=== PATIENT | female | born 1935 | race Caucasian/White ===

== ENCOUNTER 2017-06-11 11:02 | Inpatient (IN) | payer MEDICARE ==
[~2017-06-11] VITALS: Ht 154.9 cm; Wt 49.7 kg
[2017-06-11 12:50] VITALS: BP 131/60
[2017-06-11 12:53] VITALS: BP 127/59
[2017-06-11 12:56] VITALS: BP 117/51
[2017-06-11] MEDS ORDERED: ONDANSETRON 4MG/2ML VIAL (J2405) IV PRN (13:00)
[2017-06-11] MEDS ORDERED: ASPI1TAB PO (13:21)
[2017-06-11] MEDS ORDERED: CALC600T31 PO (13:21)
[2017-06-11] MEDS ORDERED: FISH5CAP PO (13:21)
[2017-06-11] MEDS ORDERED: SING10TA32 PO (13:21)
[2017-06-11] MEDS ORDERED: SALI0.6523 (13:21)
[2017-06-11] MEDS ORDERED: METO50TA7 PO (13:21)
[2017-06-11] MEDS ORDERED: FIBE625T27 PO (13:21)
[2017-06-11] MEDS ORDERED: REFR0.5D8 OU (13:21)
[2017-06-11] MEDS ORDERED: ANAC400T PO (13:28)
[2017-06-11] MEDS ORDERED: ACET1TAB17 PO (13:28)
[2017-06-11 13:38] LABS: MEAN CORPUSCULAR HEMOGLOBIN 29.4 pg (27.0-33.0); MEAN CORPUSCULAR HGB CONC 31.7 g/dl (32.0-36.5); MEAN CORPUSCULAR VOLUME 92.8 fl (80.0-96.0); RED CELL DISTRIBUTION WIDTH 13.9 % (11.5-14.5); WHITE BLOOD COUNT 13.8 K/mm3 (4.0-10.0)
[2017-06-11 14:00] LABS: ALBUMIN 3.2 GM/DL (3.2-5.2); ALBUMIN/GLOBULIN RATIO 1.03 (1.00-1.93); ALKALINE PHOSPHATASE 37 U/L (45-117); ALT/SGPT 12 U/L (12-78); ANION GAP 8 MEQ/L (8-16); AST/SGOT 11 U/L (15-37); BILIRUBIN,TOTAL 0.2 MG/DL (0.2-1.0); BLOOD UREA NITROGEN 46 MG/DL (7-18); CALCIUM LEVEL 8.3 MG/DL (8.8-10.2); CARBON DIOXIDE LEVEL 28 MEQ/L (21-32); CHLORIDE LEVEL 110 MEQ/L (98-107); CREATININE FOR GFR 0.56 MG/DL (0.55-1.02); GLOMERULAR FILTRATION RATE > 60.0 (>39); GLUCOSE, FASTING 94 MG/DL (83-110); POTASSIUM SERUM 4.3 MEQ/L (3.5-5.1); SODIUM LEVEL 146 MEQ/L (136-145); TOTAL PROTEIN 6.3 GM/DL (6.4-8.2)
[2017-06-11] MEDS ORDERED: SODIUM CHLORIDE NASAL 0.65% SPRAY BTL (OCEAN) PRN (14:45)
[2017-06-11] MEDS: PANTOPRAZOLE SODIUM 40 MG in D5W MINI-BAG PLUS 50 ML IV SCH ×3 (14:58→22:56)
[2017-06-11] MEDS: D5W/0.9% SODIUM CHLORIDE 1,000 ML IV SCH ×2 (14:58→23:36)
--- NOTE | 2017-06-11 15:06 | HPEPDOC ---
General Date of Admission Jun 11, 2017 at 12:41 Attending Physician: FLAKITA MURILLO MD Chief Complaint The patient is a 81-year-old female admitted with a reason for visit of Gi Bleed. Source: Patient History of Present Illness PRIMARY CARE PROVIDER: Landy Shook PROPERTY CUSTODIAN from [facility] in [facility] CHIEF COMPLAINT: black tarry-like stool HISTORY OF PRESENT ILLNESS: Ms. Rey is a 81 yo F with a past medical history of diverticulosis, diverticulitis status post 2 colostomies, colostomy with rectovaginal fistula, left breast cancer status post lumpectomy and radiation/chemotherapy around 8 years ago, essential hypertension, hypercholesterolemia, and gastroesophageal reflux disease, who presents to [facility] today as a transfer from [facility] for a GI consult for a possible GI bleed. Patient states that she started to have black tarry bowel movements in her colostomy bag that began at ~5 PM last night. She had no pain before this started. States she was up all night emptying her colostomy bag which was constantly draining with black tarry stool. This did not let up until around 9 AM this morning which was the last time that she emptied her bag. She went to [facility] this AM to have this checked out. She also states that she had to lie down in the bathroom floor for a half an hour because she became dizzy. She denied fevers, chills, chest pain, shortness of breath, abdominal pain, vomiting, constipation, urinary complaints She denies edema or rashes anywhere. She admits that she did feel nauseous earlier and felt sick to her stomach this morning, but she did not vomit. She denies any sick contacts except for her neighbors who got shingles. She denies any recent travel anywhere. She admits that she has frequent urinary tract infections due to having a rectovaginal fistula. She admits, now, that she feels tired. Patient has not had any episodes of dark tarry bowel movements ever before she states. This is the first time, and was an abrupt onset. In [facility] documentation, patient stated she had chills, nausea, and dizziness that began at 1700 yesterday. According to patient and daughter, patient has had significant stress lately as her has recently been admitted to the [facility] for rapidly advancing dementia. She has also admitted to taking Anacin for the past 3 days. In [facility], they had administered protonix IV 40 mg, given 4 mg zofran, gave 1 gm of rocephin. Patient was then placed on protonix IV 4 mg per hour drip. PAST MEDICAL HISTORY: Diverticulosis Diverticulitis with perforation status post 2 colostomies; colostomy now with rectovaginal fistula (as per patient) Left breast cancer status post lumpectomy and radiation/chemotherapy around 8 years ago Essential hypertension Hypercholesterolemia Gastroesophageal reflux disease Seasonal Allergic Rhinitis Sleep Related Leg Cramps Hx of Hyperkalemia, diminished renal excretion (as per progress note obtained from [facility] in [facility] from PCP office on 05/16/17)--seems to be due to excess banana intake PAST SURGICAL HISTORY: 2 colostomies, 1 with reversal, now with rectovaginal fistula Tonsillectomy Bladder Suspension ~20 years ago Hysterectomy L Lumpectomy 2009 Chronic UTIs--sees Urology MEDICATIONS: Please see below. ALLERGIES: Nuts: edema, swelling, hives Codeine sulfate: nausea Phenergen: angioedema, swelling SOCIAL HISTORY: Denies tobacco use Denies EtOH use Denies illicit drug use Her is a resident of [facility] FAMILY HISTORY: Father: , HTN, hyperlipidemia cancer Mother: at age 92 with stomach cancer; had HTN, hyperlipidemia Sister & Brother: with either parathyroid or thyroid disorders Brother: had parathyroidectomy CODE STATUS: FULL CODE REVIEW OF SYSTEMS: All ROS were negative except for those as stated above in HPI. PHYSICAL EXAMINATION: Please see VS and physical examination below. LABORATORY DATA: From [facility] on 06/11/17: Labs were significant for: CBC with white blood cell count 17.3, hemoglobin 9.4 , hematocrit 30.1, red blood cell count 3.20, MCV 94.1, platelet count 392, mean corpuscular hemoglobin 29.4, name corpuscular hemoglobin concentration 31.2 , red cell distribution width 14.2, mean platelet volume of 9.8, granulocyte percent is 82.3, lymphocyte percent 10.9, monocyte percent 6.2, eosinophil percent 0.3, basophil percent 0.3, granulocyte #14.2, lymphocyte #1.9, monocyte #1.1, eosinophil #0.1, basophil #0.1, neutrophils 88, lymphocytes 9, monocytes 3, anisocytosis 1+, platelet estimate normal. PT was 9.9 and INR was 1.03. Partial thromboplastin time was 21.9. --It was reported in [facility] Documentation that patient had Hgb of 12 to 9 drop in one month. FOBT: (+) CMP from [facility]: Was significant for BUN of 56, a creatinine of 0.7. Glucose was 104, sodium 140, potassium 4.1, chloride 103, bicarbonate was 29, calcium 9.2, anion gap 8, GFR 81, AST 12, ALT 19, alk phosphatase 46, total bilirubin 0.2, total protein 6.9, albumin 2.3. Blood type ABO from [facility]: A, Rh type: negative, antibody screen: Negative Urinalysis from [facility] today: Pale clear in color and appearance, specific gravity of 1.010, 2+ leukocyte esterase, positive nitrate, small ketone , trace blood, 5-10 white blood cells per high power field, 1+ epithelial cells , 1+ bacteria Urine cultures: Pending [facility] Labs done on 06/11/17 at 13:25: CBC was remarkable for white blood cell count 13.8, hemoglobin 8.7, hematocrit 27.3, MCHC 31.7, platelets 348. CMP: was significant for sodium 146, chloride 110, BUN 46, creatinine 0.56, GFR greater than 60, fasting glucose 94, calcium 8.3, total protein 6.3, albumin 2.2. PT was 13.3 and INR was 1 Urinalysis: was significant for a straw-colored appearance, 2+ blood, 3+ leukocyte esterase, 38 white blood cells, 4 red blood cells, and 1+ bacteria. Type and screen: A(-) and antibody screen negative. MICROBIOLOGY: Blood cx pending x 2 Urine Cx pending ASSESSMENT/PLAN: This is a 81-year-old female who is presenting from [facility] as a transfer to [facility] for gastroenterology consult for possible GI bleed. She has been suffering from dark tarry bowel movements since 5 PM last night. She will be admitted to the PCU unit for close monitoring and for evaluation of symptomatic anemia. She likely has blood loss anemia. Also is found to have leukocytosis and possible UTI. Symptomatic Anemia: Patient is hemodynamically stable at this time. However, her counts seem to be dropping. Her H&H was 9.4 & 30.1 taken this AM at [facility]. Is now 8.7 & 27.3 at [facility] ED at 13:25. She likely has an upper GI bleed. We will be starting a protonix drip, gentle IV hydration, have obtained consent for possible blood transfusion, have consulted Dr. Chaves of GI, will monitor H&H q6h and then q24 hours. Dr. Chaves states he will decide whether to proceed with EGD after he sees the patient. We will monitor VS, check daily CBCs and BMPs. Will make patient NPO for possible EGD procedure. Will hold all PO medications at this point in time. Will restart if bleeding stops. Will monitor strict I's/O's. Leukocytosis: At [facility], was found to have WBC of 17.3 and at [facility] WBC is down to 13.8. Possible Acute UTI/Cystitis with hematuria: Patient has hx of recurrent UTIs. States this is due to her rectovaginal fistula. Patient may have a UTI and urine cx are pending, however, she denies any urinary complaints. She was given 1 gm of rocephin IV at [facility] already. Will possibly start antibiotics if patient becomes symptomatic. Will hold off at this point in time. Chronic Medical Problem List: Diverticulosis Diverticulitis with perforation status post 2 colostomies; colostomy now with rectovaginal fistula (as per patient) Left breast cancer status post lumpectomy and radiation/chemotherapy around 8 years ago Essential hypertension Hypercholesterolemia Gastroesophageal reflux disease Seasonal Allergic Rhinitis Sleep Related Leg Cramps Hx of Hyperkalemia, diminished renal excretion (as per progress note obtained from [facility] in [facility] from PCP office on 05/16/17)--seems to be due to excess banana intake Resume home medications and diet when anemia has resolved for the above listed medical problems. DVT ppx: TEDs and SCDs, no pharmacologic DVT ppx at this time due to likely GI bleed. FULL CODE STATUS Immunizations as per protocol My preceptor for this patient encounter was Dr. Flakita Murillo, and was physically present in the building during the encounter and was fully available. As needed , all aspects of the patient interview, examination, medical decision making process, and medical care plan development were reviewed and approved by the preceptor. Preceptor is aware and concurs with the plan as stated in the body of this note and will attest to such by his/her cosignature. Home Medications Scheduled (Fish Oil 1200 mg) 1 Cap Cap, 1 CAP PO BID, (Reported) Aspirin (Aspirin 81) 81 Mg Tab, 81 MG PO QPM, (Reported) Calcium (Calcium) 600 Mg Tab, 600 MG PO BID, (Reported) Calcium Polycarbophil (Fiber Tabs) 625 Mg Tab, 625 MG PO DAILY, (Reported) Metoprolol Tartrate (Metoprolol Tartrate) 50 Mg Tab, 50 MG PO BID, (Reported) Montelukast Sodium (Singulair) 10 Mg Tab, 10 MG PO QPM, (Reported) Scheduled PRN (Saline Nasal [place]) 0.65 % Spr, 1 SPRAY NA for NASAL DRYNESS, (Reported) (Anacin 400-32 mg) 1 Tab Tab, 1 TAB PO QHS PRN for PAIN, (Reported) Acetaminophen (Acetaminophen) 325 Mg Tab, 650 MG PO Q4H PRN for PAIN, (Reported) Carboxymethylcellulose Sodium (Refresh Tears) 0.5 % Ayan, 1 DROP OU Q2H PRN for DRY EYES, (Reported) Allergies Coded Allergies: NUTS (Unverified Allergy, Severe, SWELLING, 06/11/17) Promethazine (Unverified Allergy, Severe, THROAT CLOSES, 06/11/17) Codeine (Unverified Adverse Reaction, Mild, N/V, 06/11/17) Physical Examination General Exam: Positive: Alert, Cooperative, No Acute Distress Eye Exam: Positive: Conjunctiva & lids normal, Negative: Sclera icteric ENT Exam: Positive: Atraumatic, Other ENT (a little hard of hearing) Neck Exam: Positive: Supple, Negative: JVD, thyromegaly Chest Exam: Positive: Clear to auscultation, Normal air movement, Negative: Rales, Rhonchi, Wheezing Heart Exam: Positive: Rate Normal, Regular Rhythm, Normal S1, Normal S2, Negative: Murmurs Abdomen Exam: Positive: Normal bowel sounds, Soft, Other (+colostomy bag on anterior abdomen appreciated with some stool ), Negative: Tenderness, Hepatospenomegaly Extremity Exam: Positive: Normal pulses (+2 dorsalis pedis and radial bilaterally), Negative: Clubbing, Cyanosis, Edema Skin Exam: Positive: Nl turgor and temperature, Negative: Rash, Breakdown Neuro Exam: Positive: Normal Speech Psych Exam: Positive: Mental status NL, Mood NL, Memory Intact, Oriented x 3 Vital Signs Vital Signs Date Time Temp Pulse Resp B/P (MAP) Pulse Ox O2 Delivery O2 Flow Rate FiO2 06/11/17 12:56 95 117/51 (73) 06/11/17 12:50 98.6 20 98 Room Air Laboratory Data Labs 24H Laboratory Tests 2 06/11/17 13:04: Urine Appearance CLEAR, Urine Color STRAW, Urine pH 5.0, Urine Specific [place] 1.011, Urine Protein NEGATIVE, Urine Glucose (UA) NEGATIVE, Urine Ketones NEGATIVE, Urine Urobilinogen 0.2, Urine Bilirubin NEGATIVE, Urine Leukocyte Esterase 3+H, Urine Blood 2+H, Urine Nitrite NEGATIVE, Urine WBC (Auto) 38H, Urine RBC (Auto) 4H, Urine Hyaline Casts (Auto) 0, Urine Bacteria (Auto) 1+H, Urine Squamous Epithelial Cells 0, Urine Sperm (Auto) 06/11/17 13:25: Prothrombin Time 13.3, Prothromb Time International Ratio 1.00, Anion Gap 8, Glomerular Filtration Rate > 60.0, Blood Urea Nitrogen 46H, Creatinine 0.56, Sodium Level 146H, Potassium Level 4.3, Chloride Level 110H, Carbon Dioxide Level 28, Calcium Level 8.3L, Aspartate Amino Transf (AST/SGOT) 11L, Alanine Aminotransferase (ALT/SGPT) 12, Alkaline Phosphatase 37L, Total Bilirubin 0.2, Total Protein 6.3L, Albumin 3.2, Albumin/Globulin Ratio 1.03 CBC/BMP Laboratory Tests 06/11/17 13:25 Red Blood Count 2.95 L, Mean Corpuscular Volume 92.8, Mean Corpuscular Hemoglobin 29.4, Mean Corpuscular Hemoglobin Concent 31.7 L, Red Cell Distribution Width 13.9, Calcium Level 8.3 L, Aspartate Amino Transf (AST/SGOT) 11 L, Alanine Aminotransferase (ALT/SGPT) 12, Alkaline Phosphatase 37 L, Total Bilirubin 0.2, Total Protein 6.3 L, Albumin 3.2 Microbiology Microbiology 06/11/17 Blood Culture, Received Pending 06/11/17 Blood Culture, Received Pending 06/11/17 Urine Culture, Received Pending Plan / VTE VTE Prophylaxis Ordered?: Yes (TEDs and SCDs, no pharmacologic ppx due to possible GI bleed) VIJAY FRANCIS OGME-1 Jun 11, 2017 15:06
[2017-06-11 16:00] VITALS: BP 126/60
[2017-06-11 20:00] VITALS: BP 113/54
[2017-06-12] VITALS (17 sets, daily range): BP systolic 107–139; BP diastolic 46–67
--- NOTE | 2017-06-12 00:27 | CR.PDOC ---
[facility] Consultation Consultation DATE OF CONSULTATION: 06/11/2017 14:00. REFERRING PROVIDER: Dr. Flaktia Murillo. ATTENDING PHYSICIAN: Dr. Flakita Murillo REASON FOR CONSULTATION/CHIEF COMPLAINT: Dark stools in colostomy bag. 81 year old woman with HTN, diverticulosis, diverticulitis status post colostomy twice, ( one complicated with rectovaginal fistula and patient was told that the colostomy is permanent and cannot be reversed, since 9 yrs, last colonoscopy 2 months ago), HLD, was admitted from [facility] ( for possible GI bleeding). GI was consulted for the same. Patient reports she noted her colostomy bag filled with dark stools since 5 PM last night, when she also noted having dizziness and feeling weak. She says she was taking high dose aspirin for pain for 3 days. Also reports some nausea but denies any other GI symtptoms. No further dark stools today. Pertinent negative symptoms. Denies abdominal pain, fever, chills, sick contacts, antibiotics use, vomiting, loss of appetite, unintentional weight loss, no hematemsis. PAST MEDICAL HISTORY: As above. PAST SURGICAL HISTORY: As above. h/o hysterectomy. MEDICATIONS: reviewed. No Plavix or anticoagulants. ALLERGIES: reviewed. see below. SOCIAL HISTORY: Denies smoking, alcohol or drugs. FAMILY HISTORY: Non contributory. Prior endoscopies: EGD - many years ago > 10 yrs. patient does not remember the details. Colonoscopy - 2 months ago- from both colostomy and anus. - normal as per patient. Review of systems: GI: as above. General: no fever, chills. Respiratory system: NO SOB, no cough or chest pain. CVS: no chest pain. Musculoskeletal: has multiple arthralgias. SKin: no new rash. DUMPER OPERATOR: Denies any focal weakness. Physcial examination: VItals - noted - normal BP, pulse. HEENT: mild pallor, no icterus. CHEST: bilaretal clear breath sounds. CVS: s1, s 2 heard , no murmur. No pedal edema. GI: soft, right sided colostomy bag and also noted left sided healed colostomy. Non tender, normal bowel sounds. Extremities: no pedal edema. DUMPER OPERATOR: Alert awake and oriented x 3. no focal deficits. Labs: reviewed.. Two serial Hb.HCT - stable in [facility]. Assessment: -- Darks stools from colostomy with normal colonoscopy around 2 months back - now no further dark stools -- DDx- PUD vs Gastric mass vs AVM. Less likely diverticular bleeding or lower GI bleeding. NO overt active bleeding at this time. -- Anemia with drop in Hb/HCT from baseline from previous baseline- likely from GI bleeding. Recommendations: -- Clear liquid diet for now. -- IV PPI - prefer pantoprazole drip for 48 hours then switch to PO PPI daily for 8 weeks ( to be taken bread panner on empty stomach). -- Monitor CBC -- Transfuse if needed one PRBC to keep hemoglobin around 9. ( due to age and risk of coronary disease. -- Avoid NSAIDs. -- Patient is educated about the need for EGD urgently. Patient is explained about the procedure, its indications, risks ( including but not limited to - infection, bleeding with need for transfusion, perforation, need for urgent surgery, anesthesia complications including cardiac arrest) and alternatives inclduing no procedure. -- patient verbalized understanding and agreed for the procedure to be done on Tuesday. -- Keep NPO after mid night on tuesday. Plan of care reviewed and discussed with Patient and she verbalized understanding. Recommendations communicated to primary team. Allergies Coded Allergies: NUTS (Unverified Allergy, Severe, SWELLING, 06/11/17) Promethazine (Unverified Allergy, Severe, THROAT CLOSES, 06/11/17) Codeine (Unverified Adverse Reaction, Mild, N/V, 06/11/17) Home Medications Scheduled (Fish Oil 1200 mg) 1 Cap Cap, 1 CAP PO BID, (Reported) Aspirin (Aspirin 81) 81 Mg Tab, 81 MG PO QPM, (Reported) Calcium (Calcium) 600 Mg Tab, 600 MG PO BID, (Reported) Calcium Polycarbophil (Fiber Tabs) 625 Mg Tab, 625 MG PO DAILY, (Reported) Metoprolol Tartrate (Metoprolol Tartrate) 50 Mg Tab, 50 MG PO BID, (Reported) Montelukast Sodium (Singulair) 10 Mg Tab, 10 MG PO QPM, (Reported) Scheduled PRN (Saline Nasal [place]) 0.65 % Spr, 1 SPRAY NA for NASAL DRYNESS, (Reported) (Anacin 400-32 mg) 1 Tab Tab, 1 TAB PO QHS PRN for PAIN, (Reported) Acetaminophen (Acetaminophen) 325 Mg Tab, 650 MG PO Q4H PRN for PAIN, (Reported) Carboxymethylcellulose Sodium (Refresh Tears) 0.5 % Ayan, 1 DROP OU Q2H PRN for DRY EYES, (Reported) BIRDIE SETHI MD Jun 12, 2017 00:27
[2017-06-12] MEDS: PANTOPRAZOLE SODIUM 40 MG in D5W MINI-BAG PLUS 50 ML IV SCH ×5 (03:58→23:30)
[2017-06-12 05:20] LABS: MEAN CORPUSCULAR HEMOGLOBIN 30.5 pg (27.0-33.0); MEAN CORPUSCULAR HGB CONC 32.3 g/dl (32.0-36.5); MEAN CORPUSCULAR VOLUME 94.5 fl (80.0-96.0); RED CELL DISTRIBUTION WIDTH 14.1 % (11.5-14.5); WHITE BLOOD COUNT 8.8 K/mm3 (4.0-10.0)
[2017-06-12 05:41] LABS: ANION GAP 8 MEQ/L (8-16); BLOOD UREA NITROGEN 24 MG/DL (7-18); CALCIUM LEVEL 7.8 MG/DL (8.8-10.2); CARBON DIOXIDE LEVEL 26 MEQ/L (21-32); CHLORIDE LEVEL 116 MEQ/L (98-107); CREATININE FOR GFR 0.57 MG/DL (0.55-1.02); GLOMERULAR FILTRATION RATE > 60.0 (>39); GLUCOSE, FASTING 128 MG/DL (83-110); POTASSIUM SERUM 4.2 MEQ/L (3.5-5.1); SODIUM LEVEL 150 MEQ/L (136-145)
[2017-06-12] MEDS ORDERED: CALCIUM GLUCONATE 1,000 MG in D5W MINI-BAG PLUS 100 ML IV ONE (07:45)
[2017-06-12] MEDS: D5W 1,000 ML IV SCH ×2 (08:59→22:34)
[2017-06-12] MEDS: ACETAMINOPHEN TAB 650MG DOSE (2X325MG) PO PRN ×2 (09:48→22:33)
--- NOTE | 2017-06-12 11:28 | IPNPDOC ---
Text Note Date of Service The patient was seen on 06/12/17. NOTE Subjective: Patient states she's feeling better. Her dizziness is subsiding. She no longer sees tarry stools out of her ostomy. No hemoptysis or hematemesis. Objective: Vitals: (see below) General: No acute distress, laying comfortably in bed. HEENT: Moist mucous membranes. Neck: No JVD or lymphadenopathy Cardiac: RRR, No murmurs Pulm: Clear to auscultation b/l. No wheezing, rhonchi Abd: NT/ND + BS. Ostomy intact. No leak. Ext: No edema or cyanosis Labs (see below) Images: Assessment/Plan 1. Symptomatic anemia- presenting with melanotic stools. We'll transfuse 2 units PRBC. Symptomatically improving. CBC every 6 hours. Hemodynamically stable.Controlled on board for likely EGD tomorrow.We'll continue to monitor on telemetry. Continue Protonix 2. History of diverticulosis with perforation status post 2 colostomies, patient noting a rectovaginal fistula to being addressed by surgery outpatient. 3. Hypertension- controlled. Hold her home meds as patient was relatively hypotensive on presentation. 4. GERD- on PPI 5. Hyperlipidemia- on statin DVT prophy: SCDs VS,Fishbone, I+O VS, Fishbone, I+O Laboratory Tests 06/11/17 13:25 Red Blood Count 2.95 L, Mean Corpuscular Volume 92.8, Mean Corpuscular Hemoglobin 29.4, Mean Corpuscular Hemoglobin Concent 31.7 L, Red Cell Distribution Width 13.9, Calcium Level 8.3 L, Aspartate Amino Transf (AST/SGOT) 11 L, Alanine Aminotransferase (ALT/SGPT) 12, Alkaline Phosphatase 37 L, Total Bilirubin 0.2, Total Protein 6.3 L, Albumin 3.2 06/11/17 19:16 06/12/17 01:01 06/12/17 04:35 Red Blood Count 2.60 L, Mean Corpuscular Volume 94.5, Mean Corpuscular Hemoglobin 30.5, Mean Corpuscular Hemoglobin Concent 32.3, Red Cell Distribution Width 14.1, Calcium Level 7.8 L Vital Signs Date Time Temp Pulse Resp B/P (MAP) Pulse Ox O2 Delivery O2 Flow Rate FiO2 06/12/17 10:40 98.0 80 20 128/60 (82) 96 Room Air I&O- Last 24 Hours up to 6 AM 06/12/17 06:00 Intake Total 1660 ml Output Total 1150 ml Balance 510 ml STEPH MARTINEZ MD Jun 12, 2017 11:28
[2017-06-13] VITALS (8 sets, daily range): BP systolic 113–162; BP diastolic 52–75
[2017-06-13] MEDS: ACETAMINOPHEN TAB 650MG DOSE (2X325MG) PO PRN (04:03)
[2017-06-13] MEDS: PANTOPRAZOLE SODIUM 40 MG in D5W MINI-BAG PLUS 50 ML IV SCH ×4 (04:04→20:28)
[2017-06-13 05:51] LABS: MEAN CORPUSCULAR HEMOGLOBIN 30.7 pg (27.0-33.0); MEAN CORPUSCULAR HGB CONC 33.9 g/dl (32.0-36.5); MEAN CORPUSCULAR VOLUME 90.6 fl (80.0-96.0); RED CELL DISTRIBUTION WIDTH 14.2 % (11.5-14.5); WHITE BLOOD COUNT 9.7 K/mm3 (4.0-10.0)
[2017-06-13 06:17] LABS: ANION GAP 8 MEQ/L (8-16); BLOOD UREA NITROGEN 7 MG/DL (7-18); CALCIUM LEVEL 7.9 MG/DL (8.8-10.2); CARBON DIOXIDE LEVEL 27 MEQ/L (21-32); CHLORIDE LEVEL 110 MEQ/L (98-107); CREATININE FOR GFR 0.47 MG/DL (0.55-1.02); GLOMERULAR FILTRATION RATE > 60.0 (>39); GLUCOSE, FASTING 113 MG/DL (83-110); POTASSIUM SERUM 3.5 MEQ/L (3.5-5.1); SODIUM LEVEL 145 MEQ/L (136-145)
[2017-06-13] MEDS ORDERED: POTASSIUM CHLORIDE 10 MEQ SR TABLET PO ONE (07:45)
[2017-06-13] MEDS ORDERED: CALCIUM GLUCONATE 1,000 MG in D5W MINI-BAG PLUS 100 ML IV ONE (07:45)
[2017-06-13] MEDS ORDERED: PREVNAR 13 VACCINE SYRINGE (CPT CODE:90670) IM ONE (09:00)
--- NOTE | 2017-06-13 12:02 | IPNPDOC ---
Text Note Date of Service The patient was seen on 06/13/17. NOTE Subjective: Patient states she's feeling better. Melanotic stools have subsided. No hemoptysis or hematemesis. Objective: Vitals: (see below) General: No acute distress, laying comfortably in bed. HEENT: Moist mucous membranes. Neck: No JVD or lymphadenopathy Cardiac: RRR, No murmurs Pulm: Clear to auscultation b/l. No wheezing, rhonchi Abd: NT/ND + BS. Ostomy intact. No leak. Ext: No edema or cyanosis Labs (see below) Images: Assessment/Plan 1. Symptomatic anemia- from acute blood loss anemia, presenting with melanotic stools. Likely from gastric ulcers. Status post 2 units PRBC. Symptomatically improving. Hemoglobin stable.. Hemodynamically stable.Controlled on board for likely EGD today.We'll continue to monitor on telemetry. Continue Protonix. GI on board 2. History of diverticulosis with perforation status post 2 colostomies, patient noting a rectovaginal fistula to being addressed by surgery outpatient. 3. Hypertension- controlled. Hold her home meds as patient was relatively hypotensive on presentation. 4. GERD- on PPI 5. Hyperlipidemia- on statin DVT prophy: SCDs VS,Fishbone, I+O VS, Fishbone, I+O Laboratory Tests 06/12/17 13:53 06/12/17 19:04 06/13/17 00:39 06/13/17 04:32 Red Blood Count 3.57 L, Mean Corpuscular Volume 90.6, Mean Corpuscular Hemoglobin 30.7, Mean Corpuscular Hemoglobin Concent 33.9, Red Cell Distribution Width 14.2, Calcium Level 7.9 L Vital Signs Date Time Temp Pulse Resp B/P (MAP) Pulse Ox O2 Delivery O2 Flow Rate FiO2 06/13/17 08:00 97.3 71 18 134/62 (86) 97 Room Air I&O- Last 24 Hours up to 6 AM 06/13/17 06:00 Intake Total 2520 ml Output Total 2700 ml Balance -180 ml STEPH MARTINEZ MD Jun 13, 2017 12:02
[2017-06-13] MEDS ORDERED: fentaNYL 100 MCG/2 ML INJECTION (J3010) As Ordered ONE (17:39)
[2017-06-13] MEDS ORDERED: MIDAZOLAM INJ 2 MG/2 ML VIAL (J2250) As Ordered ONE (17:39)
[2017-06-13] MEDS ORDERED: LIDOCAINE 2% INJ 100 MG/5 ML SDV (FOR ANES.) As Ordered ONE ×2 (17:39→17:56)
[2017-06-13] MEDS ORDERED: PROPOFOL 200 MG/20 ML VIAL As Ordered ONE (17:39)
[2017-06-13] MEDS ORDERED: EPINEPHrine 1MG/10ML SYRINGE 1.5IN As Ordered ONE (18:01)
--- NOTE | 2017-06-13 18:24 | ROOR ---
Patient Name: Janeth Rey Procedure Date: 06/13/2017 5:46 PM Date of : 1935 Age: 81 Room: Main OR Gender: Female Note Status: Finalized Procedure: Upper GI endoscopy Indications: Recent gastrointestinal bleeding, Suspected upper gastrointestinal bleeding Providers: Art Chaves MD Referring MD: Inpatient Requesting Provider: Medicines: Monitored Anesthesia Care Complications: No immediate complications. Procedure: Pre-Anesthesia Assessment: - Prior to the procedure, a History and Physical was performed, and patient medications and allergies were reviewed. The patient is competent. The risks and benefits of the procedure and the sedation options and risks were discussed with the patient. All questions were answered and informed consent was obtained. Patient identification and proposed procedure were verified by the physician, the nurse and the fashion illustrator in the procedure room. Mental Status Examination: alert and oriented. Airway Examination: normal oropharyngeal airway and neck mobility. Respiratory Examination: clear to auscultation. CV Examination: normal. Prophylactic Antibiotics: The patient does not require prophylactic antibiotics. Prior Anticoagulants: The patient has taken no previous anticoagulant or antiplatelet agents. ASA Grade Assessment: III - A patient with severe systemic disease. After reviewing the risks and benefits, the patient was deemed in satisfactory condition to undergo the procedure. The anesthesia plan was to use monitored anesthesia care (MAC). Immediately prior to administration of medications, the patient was re-assessed for adequacy to receive sedatives. The heart rate, respiratory rate, oxygen saturations, blood pressure, adequacy of pulmonary ventilation, and response to care were monitored throughout the procedure. The physical status of the patient was re-assessed after the procedure. The Endoscope was introduced through the mouth, and advanced to the second part of duodenum. The upper GI endoscopy was accomplished without difficulty. The patient tolerated the procedure well. Findings: The examined esophagus was normal. Two non-bleeding cratered gastric ulcers with a clean ulcer base (Damaso Class III) were found in the gastric antrum. The largest lesion was 10 mm in largest dimension. Biopsies were taken with a cold forceps for histology. Biopsies were taken with a cold forceps for Helicobacter pylori testing. Verification of patient identification for the specimen was done by the physician and nurse using the patient's name, date and medical record number. Estimated blood loss was minimal. The duodenal bulb and second portion of the duodenum were normal. Bile is noted in Duodenum, Impression: - Normal esophagus. - Non-bleeding gastric ulcers with a clean ulcer base (Damaso Class III). Biopsied. - Normal duodenal bulb and second portion of the duodenum. Bile is noted in Duodenum, Recommendation: - Return patient to [facility] for ongoing care. - Full liquid diet today, then advance as tolerated to resume regular diet. - Continue present medications. - Await pathology results. Treat for H.pylori if positive. - Use a proton pump inhibitor PO daily for 8 weeks. - Repeat upper endoscopy in 3 months to check healing. - Telephone GI clinic for pathology results in 1 week. - Return to GI office in 8 weeks. Art Chaves MD Art Chaves MD 06/13/2017 6:24:21 PM This report has been signed electronically. Number of Addenda: 0 Note Initiated On: 06/13/2017 5:46 PM Estimated Blood Loss: Estimated blood loss: none.
[2017-06-14] MEDS: PANTOPRAZOLE SODIUM 40 MG in D5W MINI-BAG PLUS 50 ML IV SCH ×2 (00:01→05:14)
[2017-06-14] MEDS: ACETAMINOPHEN TAB 650MG DOSE (2X325MG) PO PRN (00:01)
[2017-06-14 05:06] VITALS: BP 125/62
[2017-06-14 06:57] LABS: MEAN CORPUSCULAR HEMOGLOBIN 30.8 pg (27.0-33.0); MEAN CORPUSCULAR HGB CONC 33.3 g/dl (32.0-36.5); MEAN CORPUSCULAR VOLUME 92.3 fl (80.0-96.0); WHITE BLOOD COUNT 8.4 K/mm3 (4.0-10.0)
[2017-06-14 07:21] LABS: ANION GAP 9 MEQ/L (8-16); BLOOD UREA NITROGEN 8 MG/DL (7-18); CALCIUM LEVEL 8.8 MG/DL (8.8-10.2); CARBON DIOXIDE LEVEL 25 MEQ/L (21-32); CHLORIDE LEVEL 108 MEQ/L (98-107); CREATININE FOR GFR 0.65 MG/DL (0.55-1.02); GLOMERULAR FILTRATION RATE > 60.0 (>39); GLUCOSE, FASTING 122 MG/DL (83-110); POTASSIUM SERUM 3.8 MEQ/L (3.5-5.1); SODIUM LEVEL 142 MEQ/L (136-145)
[2017-06-14 08:00] VITALS: BP_SYST 118; BP_SYST 125; BP_SYST 134; BP_DIAS 56; BP_DIAS 59; BP_DIAS 60; BP_DIAS 84
[2017-06-14] MEDS ORDERED: FIBER-CON 625 MG TAB PO SCH (09:00)
[2017-06-14] MEDS ORDERED: PANTOPRAZOLE 40MG TAB (PROTONIX) PO SCH (09:00)
[2017-06-14] MEDS ORDERED: METOPROLOL TART 50 MG TAB PO SCH (09:00)
[2017-06-14 09:23] VITALS: BP 134/60
[2017-06-14 12:00] VITALS: BP 119/51
[2017-06-14] MEDS ORDERED: PANT40TA2 PO (13:51)
[2017-06-14] MEDS ORDERED: MONTELUKAST 10 MG TAB PO SCH (21:00)
--- NOTE | 2017-06-14 21:23 | DSES ---
DATE OF ADMISSION: 06/11/2017 DATE OF DISCHARGE: 06/14/2017 FINAL DIAGNOSES: Gastric ulcer. Gastrointestinal (GI) bleed. Symptomatic anemia. Acute blood loss anemia. History of diverticulosis. Hypertension. Gastroesophageal reflux disease (GERD). Dyslipidemia. HISTORY OF THE PRESENT ILLNESS: This is a 81-year-old female patient with underlying medical history of diverticulosis with diverticulitis, status post colectomies with colostomy and rectovaginal fistula, left breast cancer, status post lumpectomy, radiation/chemo about 8 years ago, essential hypertension, dyslipidemia, GERD, presented to [facility], a transfer from [facility] for GI consult for GI bleed, patient with melenic stool for colostomy bag, black, tarry, 5:00 p.m. the night before admission with no pain. Patient was also up all night emptying colostomy bag. Usually the patient empties colostomy bag once after meal. Patient also reported dizziness, had to lie down on the bathroom floor for half an hour prior to her getting up. Denies any fevers, chills, chest pain, shortness of breath, abdominal pain, nausea, vomiting, constipation. No urinary complaints. HOSPITAL COURSE: The patient was admitted to the hospital, transfused a total of two units of packed red blood cells, status post esophagogastroduodenoscopy (EGD), colonoscopy. Protonix drip has been given. Case discussed with shrinker. Patient's hemoglobin and hematocrit was monitored, currently stable. Orthostatic negative. As per gastroenterology, the patient will need to followup pathology for Helicobacter (H) pylori and continue proton pump inhibitor (PPI) and followup with shrinker as an outpatient in two weeks. Currently is tolerating oral, comfortable, back to baseline, ready for discharge and further care as an outpatient. VITAL SIGNS: Temperature 97.8, pulse 71, respiratory rate 18, blood pressure 119/51, pulse oximetry 97% on room air. GENERAL: Patient alert and oriented times three, in no acute distress. HEENT: Normocephalic, atraumatic. PULMONARY: Bilaterally clear to auscultation. CARDIAC: Regular rate and rhythm. Normal S1, S2. PULMONARY: Bilaterally clear. ABDOMEN: Soft, nontender, positive bowel sounds. Colostomy intact. EXTREMITIES: No edema bilateral lower extremities. LABORATORY: WBC 8.4, hemoglobin and hematocrit 11.5 over 34.4, platelets 287. Chemistry: Sodium 142, potassium 3.8, chloride 108, bicarbonate 25, BUN 8, creatinine 0.6. DISCHARGE MEDICATIONS: - Protonix 40 mg by mouth daily - Patient's home medications: acetaminophen 650 mg by mouth every 4 hours as needed is continued as well as aspirin 81 mg by mouth daily, calcium 600 mg by mouth twice a day, fibers by mouth daily, artificial tears every 2 hours as needed, fish oil one capsule by mouth twice a day, metoprolol 50 mg by mouth twice a day, Singulair 10 mg by mouth nightly and saline nasal spray as needed were continued. DISCHARGE INSTRUCTIONS: The patient was instructed to followup with primary care provider in 7 days and shrinker, Dr. Chaves in 2 weeks. Return to the hospital if symptoms worsen.
[2017-08-23] MEDS ORDERED: IRON50TA PO (16:37)
[2017-08-23] MEDS ORDERED: FISH120012 PO (16:37)
[2017-08-23] MEDS ORDERED: COLA100C5 PO (16:37)
== END 2017-06-14 15:33 | disposition home or self-care (01) | DRG 811 ==
LOC: M PCU 12:41
PROVIDERS: ADMIT Internal Medicine; ATTEND Internal Medicine
PROC: 30233N1 Transfusion of Nonautologous Red Blood Cells into Peripheral Vein, Percutaneous Approach (ICD-10-PCS; 2017-06-12)
PROC: 0DB78ZX Excision of Stomach, Pylorus, Via Natural or Artificial Opening Endoscopic, Diagnostic (ICD-10-PCS; principal; 2017-06-13 08:00)
DX: D62 Acute posthemorrhagic anemia (principal); K25.4 Chronic or unspecified gastric ulcer with hemorrhage; N82.4 Other female intestinal-genital tract fistulae; I10 Essential (primary) hypertension; K21.9 Gastro-esophageal reflux disease without esophagitis; E78.5 Hyperlipidemia, unspecified; E78.00 Pure hypercholesterolemia, unspecified; Z85.3 Personal history of malignant neoplasm of breast; Z92.21 Personal history of antineoplastic chemotherapy; Z92.3 Personal history of irradiation; Z93.3 Colostomy status; Z90.49 Acquired absence of other specified parts of digestive tract; Z79.82 Long term (current) use of aspirin; Z79.899 Other long term (current) drug therapy; Z90.710 Acquired absence of both cervix and uterus; Z87.440 Personal history of urinary (tract) infections; Z91.018 Allergy to other foods; Z88.5 Allergy status to narcotic agent; Z88.8 Allergy status to other drugs, medicaments and biological substances; Z82.49 Family history of ischemic heart disease and other diseases of the circulatory system; Z80.9 Family history of malignant neoplasm, unspecified; Z83.49 Family history of other endocrine, nutritional and metabolic diseases

== ENCOUNTER 2017-08-28 00:37 | Emergency (ER) | payer MEDICARE ==
[~2017-08-28] VITALS: Ht 154.9 cm; Wt 51.8 kg
[~2017-08-28 00:37] MED LIST: ACET1TAB17 PO; ANAC400T PO; ASPI1TAB PO; CALC600T31 PO; COLA100C5 PO; FIBE625T27 PO; FISH120012 PO; FISH5CAP PO; IRON50TA PO; METO50TA7 PO; PANT40TA2 PO; REFR0.5D8 OU; SALI0.6523; SING10TA32 PO
[2017-08-28] MEDS ORDERED: PANTOPRAZOLE 40MG INJ (PROTONIX) (C9113) IV ONE (02:15)
[2017-08-28 03:13] LABS: BASO # 0.1 10^3/uL (0.0-0.2); BASO % 0.4 % (0.0-1.0); EOS # 0.2 10^3/uL (0.0-0.50); IMMATURE GRANULOCYTE % 0.6 % (0-0); LYMPH # 2.3 10^3/uL (1.5-4.5); LYMPH % 14.2 % (24.0-44.0); MEAN CORPUSCULAR HEMOGLOBIN 29.7 pg (27.0-33.0); MEAN CORPUSCULAR HGB CONC 31.8 g/dl (32.0-36.5); MEAN CORPUSCULAR VOLUME 93.5 fl (80.0-96.0); MONO # 0.7 10^3/uL (0.0-0.8); MONO % 4.5 % (0.0-5.0); NEUTROPHILS # 12.9 10^3/uL (1.8-7.7); NEUTROPHILS % 79.3 % (36.0-66.0); PLATELET COUNT, AUTOMATED 407 10^3/uL (150-450); RED CELL DISTRIBUTION WIDTH 13.8 % (11.5-14.5); WHITE BLOOD COUNT 16.2 10^3/uL (4.0-10.0)
[2017-08-28 04:04] LABS: ANION GAP 5 MEQ/L (8-16); BLOOD UREA NITROGEN 34 MG/DL (7-18); CALCIUM LEVEL 8.7 MG/DL (8.8-10.2); CARBON DIOXIDE LEVEL 30 MEQ/L (21-32); CHLORIDE LEVEL 105 MEQ/L (98-107); CREATININE FOR GFR 0.45 MG/DL (0.55-1.02); GLOMERULAR FILTRATION RATE > 60.0 (>39); GLUCOSE, FASTING 99 MG/DL (83-110); SODIUM LEVEL 140 MEQ/L (136-145)
[2017-08-28 04:07] LABS: POTASSIUM SERUM 6.2 MEQ/L (3.5-5.1)
[2017-08-28] MEDS ORDERED: CIPR-249 PO (04:09)
[2017-08-28 04:22] VITALS: BP 115/58
[2017-08-28] MEDS ORDERED: PROT1TAB2 PO (04:29)
== END 2017-08-28 04:59 | disposition home or self-care (01) ==
LOC: M ED 00:37
DX: K92.1 Melena (principal); Z79.899 Other long term (current) drug therapy; N39.0 Urinary tract infection, site not specified; Z79.82 Long term (current) use of aspirin; Z88.5 Allergy status to narcotic agent; Z88.8 Allergy status to other drugs, medicaments and biological substances; Z91.018 Allergy to other foods
CPT/HCPCS: 80048; 85025; 85610; 85730; 96374; 99284; C9113

== ENCOUNTER → 2018-06-09 | Outpatient (CLI) | payer MEDICARE ==
[2018-06-09 13:50] LABS: BASO # 0.1 10^3/uL (0.0-0.2); BASO % 0.8 % (0.0-1.0); EOS # 0.1 10^3/uL (0.0-0.50); EOS % 0.9 % (0.0-3.0); HEMATOCRIT 41.7 % (36.0-47.0); HEMOGLOBIN 13.5 g/dl (12.0-15.5); IMMATURE GRANULOCYTE % 0.5 % (0-3.0); LYMPH # 2.6 10^3/uL (1.5-4.5); LYMPH % 26.5 % (24.0-44.0); MEAN CORPUSCULAR HGB CONC 32.4 g/dl (32.0-36.5); MEAN CORPUSCULAR VOLUME 95.9 fl (80.0-96.0); MONO # 0.7 10^3/uL (0.0-0.8); MONO % 6.7 % (0.0-5.0); NEUTROPHILS # 6.2 10^3/uL (1.8-7.7); NEUTROPHILS % 64.6 % (36.0-66.0); PLATELET COUNT, AUTOMATED 382 10^3/uL (150-450); RED BLOOD COUNT 4.35 10^6/uL (4.00-5.40); RED CELL DISTRIBUTION WIDTH 12.2 % (11.5-14.5); WHITE BLOOD COUNT 9.6 10^3/uL (4.0-10.0)
[2018-06-09 14:21] LABS: CREATININE FOR GFR 0.63 MG/DL (0.55-1.30); FERRITIN 43 NG/ML (8-252); GLOMERULAR FILTRATION RATE > 60.0 (>32); IRON (FE) 122 UG/DL (50-170); TOTAL IRON BINDING CAPACITY 321 UG/DL (250-450)
[2018-06-09 14:21] LABS: BLOOD UREA NITROGEN 21 MG/DL (7-18)
== END ==
LOC: M LAB 12:59
DX: K25.0 Acute gastric ulcer with hemorrhage (principal)
CPT/HCPCS: 82565

== ENCOUNTER → 2018-11-22 | Outpatient (REF) | payer MEDICARE ==
[~2018-11-22] MED LIST changes: -ACET1TAB17 PO; +ACET1TAB55 PO; +BIMA01SOL OU; +CIPR-249 PO; +FERR325T3 PO; -PANT40TA2 PO; +PANT40TA3 PO; +PROT1TAB2 PO; -SALI0.6523; +SALI0.6528
== END ==
LOC: M SFHCPLAZ 17:24
PROVIDERS: ATTEND Dermatology
DX: C44.311 Basal cell carcinoma of skin of nose (principal); C44.329 Squamous cell carcinoma of skin of other parts of face

== ENCOUNTER → 2019-08-16 | Outpatient (REF) | payer MEDICARE ==
[~2019-08-16] MED LIST changes: -ASPI1TAB PO; +ASPI81TA26 PO
== END ==
LOC: M SFHCPLAZ 10:09
PROVIDERS: ATTEND Dermatology
DX: C44.42 Squamous cell carcinoma of skin of scalp and neck (principal)

== ENCOUNTER → 2019-11-13 | Outpatient (REF) | payer MEDICARE | LOC: M LAB REF 18:28 | PROVIDERS: ATTEND Dermatology | DX: D04.4 Carcinoma in situ of skin of scalp and neck (principal) ==

== ENCOUNTER → 2019-11-29 | Outpatient (REF) | payer MEDICARE | LOC: M LAB REF 10:11 | PROVIDERS: ATTEND Dermatology | DX: S01.00XA Unspecified open wound of scalp, initial encounter (principal) ==

== ENCOUNTER 2022-04-02 07:51 | Emergency (ER) | payer MEDICARE ==
[~2022-04-02] VITALS: Ht 152.4 cm; Wt 54.8 kg
[~2022-04-02 07:51] MED LIST changes: +PANT40TA29 PO; -PANT40TA3 PO
[2022-04-02 09:46] VITALS: BP 142/76
== END 2022-04-02 10:05 | disposition home or self-care (01) ==
LOC: M ED 07:51
DX: S73.102A Unspecified sprain of left hip, initial encounter (principal); W18.30XA Fall on same level, unspecified, initial encounter; I10 Essential (primary) hypertension; E78.5 Hyperlipidemia, unspecified; Z88.5 Allergy status to narcotic agent; Z88.8 Allergy status to other drugs, medicaments and biological substances; Z79.899 Other long term (current) drug therapy; Z79.82 Long term (current) use of aspirin